=== PATIENT | female | born 1975 | race Caucasian/White ===

== ENCOUNTER 2018-11-27 07:12 | Day surgery (SDC) | payer BC ==
[2018-11-23 12:56] VITALS: BMI 37.9
[2018-11-27] MEDS ORDERED: BSS (NA/CA/MG/K) BALANCED SALT SOLUTION OPHTH SOLN 15 ML BOTTLE ONE (08:38)
[2018-11-27] MEDS ORDERED: BUPIVACAINE HCL/PF 2.5 MG/ML - 30 ML VIAL IJ ONE (08:43)
[2018-11-27] MEDS ORDERED: PROPOFOL 20 ML ONE (09:08)
[2018-11-27] MEDS ORDERED: LIDOCAINE HCL/PF 2% SDV 5ML VIAL ONE (09:09)
[2018-11-27] MEDS ORDERED: KETOROLAC TROMETHAMINE 30 MG/1 ML VIAL ONE (09:09)
[2018-11-27] MEDS ORDERED: ceFAZolin SODIUM 1 GM VIAL ONE (09:09)
[2018-11-27] MEDS ORDERED: ONDANSETRON 4 MG/2 ML VIAL ONE (09:09)
[2018-11-27] MEDS ORDERED: MIDAZOLAM HCL 2 MG/2 ML SINGLE DOSE VIAL ONE (09:09)
[2018-11-27] MEDS ORDERED: DEXAMETHASONE SOD PHOSPHATE 4 MG/1 ML VIAL ONE (09:09)
[2018-11-27] MEDS ORDERED: ePHEDrine SULFATE 50 MG/1 ML AMPULE ONE (09:47)
[2018-11-27] MEDS ORDERED: BUPIVACAINE HCL/PF 0.25% (2.5MG/ML) 10 ML VIAL IJ ONE (10:03)
[2018-11-27] MEDS ORDERED: ACETAMINOPHEN 1000 MG/100 ML VIAL (NON FORMULARY) IVPB ONE (10:25)
[2018-11-27] MEDS ORDERED: ONDANSETRON 4 MG/2 ML VIAL IVPUSH PRN (10:25)
[2018-11-27] MEDS ORDERED: LACTATED RINGERS SOLUTION 1,000 ML IV SCH (10:30)
[2018-11-27] MEDS ORDERED: MEPERIDINE HCL 50 MG/ML VIAL ONE (10:41)
[2018-11-27] MEDS ORDERED: MEPERIDINE HCL CARPU-JECT 25 MG/1 ML DISP.SYRIN IVPUSH ONE (10:41)
[2018-11-27] MEDS ORDERED: oxyCODONE HCL 5 MG TABLET PO PRN ×2 (11:02)
--- NOTE | 2018-11-27 11:02 | SPEC ---
DATE OF OPERATION: 11/27/2018 SURGEON: Danish Appiah MD MARKETING REPRESENTATIVE: RUPERTO Ayala PREOPERATIVE DIAGNOSES: 1. Right knee medial and lateral meniscal tear. 2. Right knee cartilage tear. 3. Right knee synovitis. POSTOPERATIVE DIAGNOSES: 1. Right knee medial and lateral meniscal tear. 2. Right knee cartilage tear. 3. Right knee synovitis. PROCEDURE: 1. Right knee arthroscopy with partial meniscectomy medial and lateral meniscus, CPT code 72410. 2. Right knee arthroscopy with chondroplasty and abrasion-plasty, CPT code 2979. 3. Right knee arthroscopy with synovectomy, CPT code 2975. FINDINGS: 1. Medial meniscus body and posterior horn tear posterior 1/3 inner 1/3 portion with outer rim still intact. 2. Lateral meniscus posterior horn tear and anterior horn tear minor. 3. Synovitis patellofemoral medial and lateral notch area. 4. grade 2-3 cartilage injury diffuse medial femoral condyle with grade 2 changes medial tibial plateau. 5. ACL and PCL intact. 6. Anterior grade 2 cartilage injury lateral and femoral condyle. 7. grade 2-3 cartilage injury patella with grade 2-4 changes patellofemoral trochlea. PROCEDURE: Informed consent was obtained. The patient came to the operating room, where the lower extremity was prepped and draped in a sterile fashion. A tourniquet was placed on the upper thigh, but not inflated. Using standard arthroscopic technique, a lateral incision and portal was made to allow for introduction of the camera into the suprapatellar bursa. This was then taken to the medial joint line, where under direct visualization, a medial incision and portal was made. Excessive synovium noted in the medial, lateral and patellofemoral and notch area was removed by an upbiter, shaver and Bovie cautery. This was found to bring in inflammatory tissue into the joint surface, a source of pain and dysfunction. Probing of the medial and lateral meniscus found tears, as described in the findings. These were removed with the upbiter and shaver and taken back to a stable rim. Grade 2 to 3 degenerative changes were treated with a chondroplasty, removing all flaking surfaces with low-setting Bovie along the periphery to prevent further flaking. Grade 4 changes, as noted, were treated with an abrasoplasty, creating a bleeding surface at the bone/cartilage interface. Aggressive debridement with shaver/donna created bleeding surface. Micro fracture also done when indicated in findings. All areas of the knee were once again reexamined. The knee was then drained and a single suture was placed in all portals. A sterile dressing was placed and the patient was transferred to the recovery room without complication. The PA listed above was present and assisted at surgery. Their presence was absolutely medically necessary for the completion of the procedure. They helped hold the arthroscopy, pass instruments (and implants when indicated) and the procedure could not have been completed without their assistance. DANISH APPIAH M.D. [id number]
[2018-11-27] MEDS ORDERED: oxyCODONE HCL 5 MG TABLET ONE (12:10)
[2018-11-27 13:02] VITALS: TEMP 98
[2018-11-27 13:08] VITALS: BP 130/88; PULSE 63
--- NOTE | 2018-12-02 14:44 | PATH ---
Surgical Pathology Report Patient Name: JIMY MARCANO [facility]. Rec. #: [id number] /Age/Gender: 1975 (Age: 43) / F Account: [id number] Location: [facility] AMBULATORY Taken: 11/27/2018 Received: 11/27/2018 Reported: 12/02/2018 Physicians: Danish Sousa M.D. Specimen(s) Received RIGHT KNEE SHAVINGS Clinical History Right knee, internal derangement Final Diagnosis KNEE, RIGHT, ARTHROSCOPIC SHAVINGS: FIBROCOLLAGENOUS TISSUE, FIBROSYNOVIAL TISSUE AND CARTILAGE. Electronically Signed Daphnie Ledezma M.D. Gross Description Received in formalin, labeled "right knee shavings" is a 3 x 2.5 x 0.5 cm aggregate of white soft to fibrous tissue. Ring Facer tissue is submitted in one cassette. AE/11/30/2018 ebram/11/30/2018
== END 2018-11-27 13:08 | disposition home or self-care (01) ==
LOC: FASU 07:12
PROVIDERS: ATTEND Orthopaedic Surgery
PROC: 0SBC4ZZ Excision of Right Knee Joint, Percutaneous Endoscopic Approach (ICD-10-PCS; 2018-11-27)
PROC: 0SBC4ZZ Excision of Right Knee Joint, Percutaneous Endoscopic Approach (ICD-10-PCS; 2018-11-27)
PROC: 0SBC4ZZ Excision of Right Knee Joint, Percutaneous Endoscopic Approach (ICD-10-PCS; principal; 2018-11-27 09:52)
DX: S83.241A Other tear of medial meniscus, current injury, right knee, initial encounter (principal); S83.281A Other tear of lateral meniscus, current injury, right knee, initial encounter; S83.8X1A Sprain of other specified parts of right knee, initial encounter; M65.861 Other synovitis and tenosynovitis, right lower leg; X58.XXXA Exposure to other specified factors, initial encounter; Y93.9 Activity, unspecified; Y92.9 Unspecified place or not applicable
CPT/HCPCS: 84703; 88304-TC; 94760; J0131; J2175